=== PATIENT | male | born 1965 | race Two or more races ===

== ENCOUNTER 2016-09-13 19:20 | Emergency (ER) | payer MEDICAID, OTHER ==
[~2016-09-13] VITALS: Ht 162.6 cm; Wt 68.0 kg
[~2016-09-13 19:20] MED LIST: CEPHALEXIN500 MG ORAL; IBUPROFEN600 MG ORAL; INDOCIN25 MG ORAL; INDOMETHACIN50 MG PO; MUCINEX1200 MG PO; NKM; OCUFLOX5 ML OP; PROMETHAZINE-C118 M1 ORAL
--- NOTE | 2016-09-13 20:00 | Emergency Room Report ---
History of Present Illness General Chief Complaint: To Be Triaged Present Illness HPI 51-year-old presents to the emergency department for suture removal. Patient sustained facial laceration approximately one week ago which required suture placement. Patient denies discharge, erythema or increased temperature palpation about the laceration site. Patient states he is up-to-date vaccinations.. Denies CP, Palpitations, LOC, AMS, dizziness, Changes in Vision, Sensation, paresthesias, or a sudden severe headache. Allergies: Coded Allergies: No Known Allergies (Unverified , 09/04/16) Patient History Past Medical History: see triage record Past Surgical History: none Pertinent Family History: none Immunizations: UTD Reviewed Nursing Documentation: PMH: Agreed, PSxH: Agreed Nursing Documentation-PMH Hx Hypertension: Yes Review of Systems All Other Systems: negative except mentioned in HPI Physical Exam Sp02 EP Interpretation: reviewed, normal General Appearance: no apparent distress, alert, GCS 15, non-toxic Head: normocephalic, atraumatic Eyes: bilateral eye PERRL, bilateral eye normal inspection ENT: hearing grossly normal, normal pharynx, no angioedema, normal voice Neck: full range of motion, supple/symm/no masses Respiratory: chest non-tender, lungs clear, normal breath sounds, speaking full sentences Cardiovascular #1: regular rate, rhythm, no edema Cardiovascular #2: 2+ carotid (R), 2+ carotid (L), 2+ radial (R), 2+ radial (L) , 2+ dorsalis pedis (R), 2+ dorsalis pedis (L) Gastrointestinal: normal bowel sounds, non tender, soft, no guarding, no rebound Rectal: deferred Genitourinary: normal inspection, no CVA tenderness Musculoskeletal: back normal, gait/station normal, normal range of motion, non- tender, no calf tenderness Neurologic: alert, oriented x3, responsive, motor strength/tone normal, sensory intact, speech normal Psychiatric: judgement/insight normal, memory normal, mood/affect normal, no suicidal/homicidal ideation Skin: normal color, no rash, warm/dry, well hydrated, wd healing/no infection noted - 4 sutures noted, no evidence of infection Lymphatic: no adenopathy Medical Decision Making PA Attestation Dr. payan is my supervising Physician whom patient management has been discussed with. Diagnostic Impression: Primary Impression: Encounter for removal of sutures ER Course Pt. presents to the ED c/o sutures to facial laceration that need to be removed s/p wound closure 1 week ago. Ddx considered but are not limited to laceration, tendon injury, cellulitis, dehiscence. Vital signs: are WNL, pt. is afebrile H&PE are most consistent with: healed laceration of the left cheek. ORDERS: none required at this time, the diagnosis is clinical ED INTERVENTIONS: - 4 Sutures removed. he tolerated well there were no complications DISCHARGE: At this time pt. is stable for d/c to home. Will provide printed patient care instructions, and any necessary prescriptions. Care plan and follow up instructions have been discussed with the patient prior to discharge. Disposition: HOME, SELF-CARE Condition: Stable Patient Instructions: Suture Removal, Care After Additional Instructions: Take medications as directed. Follow up with PCP in 3-5 days Return sooner to ED if new symptoms occur, or current symptoms become worse. Nikia Hampton Sep 13, 2016 20:00
[2016-09-13 20:20] VITALS: BP 140/88
[2016-09-13 20:25] VITALS: BP 138/62
== END 2016-09-13 20:25 | disposition home or self-care (01) ==
LOC: EMR 20:08
DX: Z48.02 Encounter for removal of sutures (principal)
CPT/HCPCS: 99281

== ENCOUNTER 2016-10-20 20:20 | Emergency (ER) | payer MEDICAID ==
[~2016-10-20] VITALS: Ht 162.6 cm; Wt 71.2 kg
--- NOTE | 2016-10-20 21:13 | Emergency Room Report ---
History of Present Illness General Chief Complaint: Upper Respiratory Illness Present Illness HPI 51-year-old male presents to the emergency department complaining of dry cough, nasal congestion, diarrhea x2 days. Denies blood in his stool denies nausea or vomiting. Denies ill contacts or recent travel. Patient is up-to-date with vaccinations. Patient reports intermittent fevers and chills. Denies CP, Palpitations, LOC, AMS, dizziness, Changes in Vision, Sensation, paresthesias, or a sudden severe headache. Allergies: Coded Allergies: No Known Allergies (Unverified , 09/04/16) Patient History Past Medical History: see triage record Past Surgical History: none Pertinent Family History: none Immunizations: UTD Reviewed Nursing Documentation: PMH: Agreed, PSxH: Agreed Nursing Documentation-PMH Hx Hypertension: Yes Hx Neurological Problems: No - Gout Review of Systems All Other Systems: negative except mentioned in HPI Physical Exam Vital Signs Date Time Temp Pulse Resp B/P Pulse Ox O2 Delivery O2 Flow Rate FiO2 10/20/16 20:25 97.7 71 16 152/88 96 10/20/16 20:33 Room Air Sp02 EP Interpretation: reviewed, normal General Appearance: no apparent distress, alert, GCS 15, non-toxic Head: normocephalic, atraumatic Eyes: bilateral eye PERRL, bilateral eye normal inspection ENT: hearing grossly normal, normal pharynx, no angioedema, normal voice, TMs + canals normal, uvula midline, moist mucus membranes, nasal congestion Neck: full range of motion, supple/symm/no masses Respiratory: chest non-tender, lungs clear, normal breath sounds, speaking full sentences Cardiovascular #1: regular rate, rhythm, no edema Gastrointestinal: normal bowel sounds - hyperactive BS in all 4 quadrants, non tender, soft, no guarding, no rebound, other - Negative [place] signs, Negative MacBurney's sign, Negative Rosvigns Sign, Negative Psoas, No Peritoneal signs. Rectal: deferred Genitourinary: normal inspection, no CVA tenderness Musculoskeletal: back normal, gait/station normal, normal range of motion, non- tender, no calf tenderness Neurologic: alert, oriented x3, responsive, motor strength/tone normal, sensory intact, speech normal Psychiatric: judgement/insight normal, memory normal, mood/affect normal, no suicidal/homicidal ideation Skin: normal color, no rash, warm/dry, well hydrated Lymphatic: no adenopathy Medical Decision Making PA Attestation Dr. Nieves is my supervising Physician whom patient management has been discussed with. Diagnostic Impression: Primary Impression: Upper respiratory infection Qualified Codes: J06.9 - Acute upper respiratory infection, unspecified; B97.89 - Other viral agents as the cause of diseases classified elsewhere Additional Impression: Gastroenteritis ER Course 51-year-old male presents to the emergency department complaining of dry cough, nasal congestion, diarrhea x2 days. Ddx considered but are not limited to URI, pneumonia, PE, strep pharyngitis, GE. Vital signs: Pt. is afebrile, the remaining VS are WNL H&PE are most consistent with URI, and GE most likely viral in etiology, no abdominal TTP, no meningeal signs, oropharynx is not involved, no evidence of bacterial infection at this time, ORDERS: none required at this time, the diagnosis is clinical ED INTERVENTIONS: None required at this time. --PT. EDUCATION: Discussed antibiotic resistance with inappropriate prescribing of antibiotics for viral illnesses. Discussed signs and symptoms to indicate viral illness versus bacterial illness. DISCHARGE: At this time pt. is stable for d/c to home. Will provide printed patient care instructions, and any necessary prescriptions. Care plan and follow up instructions have been discussed with the patient prior to discharge. Last Vital Signs Date Time Temp Pulse Resp B/P Pulse Ox O2 Delivery O2 Flow Rate FiO2 10/20/16 20:33 71 16 Room Air 10/20/16 20:25 97.7 152/88 96 Disposition: HOME, SELF-CARE Condition: Stable Referrals: NOT CHOSEN IPA/MD,REFERRING (PCP) Departure Forms: Return to Work Return to Work Date: Oct 24, 2016 Work Restrictions: None Return to Full Activity: Oct 24, 2016 Patient Instructions: Upper Respiratory Infection, Adult, Viral Gastroenteritis , Adult, [id number] Additional Instructions: Take medications as directed. Follow up with PCP in 3-5 days Return sooner to ED if new symptoms occur, or current symptoms become worse. Do not drink alcohol, drive, or operate heavy machinery while taking Cough Syrup as this may cause drowsiness. - Please note that this Emergency Department Report was dictated using [employer] mill technology software, occasionally this can lead to erroneous entry secondary to interpretation by the dictation equipment. Nikia Hampton Oct 20, 2016 21:13
[2016-10-20] MEDS ORDERED: NASONEX17 GM NASAL (21:15)
[2016-10-20] MEDS ORDERED: BENTYL10 MG ORAL (21:15)
[2016-10-20] MEDS ORDERED: PROMETHAZINE-C118 M1 ORAL (21:15)
[2016-10-20 21:25] VITALS: BP 130/76
== END 2016-10-20 21:26 | disposition home or self-care (01) ==
LOC: EMR 20:35
DX: J06.9 Acute upper respiratory infection, unspecified (principal); K52.9 Noninfective gastroenteritis and colitis, unspecified; I10 Essential (primary) hypertension
CPT/HCPCS: 99282

== ENCOUNTER 2017-07-21 11:45 | Emergency (ER) | payer MEDICAID, OTHER ==
[~2017-07-21] VITALS: Ht 162.6 cm; Wt 70.3 kg
[~2017-07-21 11:45] MED LIST changes: +BENTYL10 MG ORAL; +NASONEX17 GM NASAL
[2017-07-21 12:02] VITALS: BP 139/92
[2017-07-21] MEDS ORDERED: [UNRECOGNIZED DRUG - OTHER] (12:06)
[2017-07-21] MEDS ORDERED: Tetanus/Diptheria/Pertussis Vaccine 0.5ml Syr IM ONE (13:30)
[2017-07-21 13:52] VITALS: BP 126/75
[2017-07-21 13:57] LABS: BASOPHILS % (AUTO) 1.2 % (0.0-2.0); EOSINOPHILS % (AUTO) 2.9 % (0.0-3.0); LYMPHOCYTES % (AUTO) 24.3 % (20.0-45.0); MEAN CORPUSCULAR HEMOGLOBIN 30.1 PG (27.0-31.0); MEAN CORPUSCULAR HGB CONC 32.7 G/DL (32.0-36.0); MEAN CORPUSCULAR VOLUME 92 FL (80-99); MEAN PLATELET VOLUME 9.1 FL (6.5-10.1); NEUTROPHILS % (AUTO) 62.5 % (45.0-75.0); PLATELET COUNT 239 K/UL (150-450)
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
[2017-07-21 14:21] LABS: ANION GAP 9 mmol/L (5-15); CALCIUM 9.2 MG/DL (8.5-10.1); CARBON DIOXIDE 26 MMOL/L (21-32); CHLORIDE 107 MMOL/L (98-107); CREATININE 1.3 MG/DL (0.55-1.30); GLOMERULAR FILTRATION RATE 57.7 mL/min (>60); POTASSIUM 4.4 MMOL/L (3.5-5.1); SODIUM 142 MMOL/L (136-145)
[2017-07-21 14:32] LABS: ALANINE AMINOTRANSFERASE 26 U/L (12-78); ALBUMIN/GLOBULIN RATIO 1.2 (1.0-2.7); ASPARTATE AMINO TRANSFERASE 14 U/L (15-37); TOTAL PROTEIN 7.1 G/DL (6.4-8.2)
[2017-07-21 14:55] LABS: APPEARANCE,URINE CLEAR; KETONES,URINE NEGATIVE (NEGATIVE); LEUKOCYTE ESTERASE ,URINE NEGATIVE (NEGATIVE); NITRITE,URINE NEGATIVE (NEGATIVE); PH,URINE 5 (4.5-8.0); PROTEIN,URINE NEGATIVE (NEGATIVE); UROBILINOGEN,URINE NORMAL MG/DL (0.0-1.0)
[2017-07-21 16:00] VITALS: BP 130/91
[2017-07-21 16:09] VITALS: BP 130/91
--- NOTE | 2017-07-22 10:01 | Diagnostic Imaging Report ---
Indication: PAIN Technique: One view of the chest Comparison: none Findings: There is atelectasis at the left lung base. The lungs and pleural spaces otherwise clear. Heart size is normal Impression: Left basilar atelectasis. No acute process otherwise
--- NOTE | 2017-07-22 10:01 | Diagnostic Imaging Report ---
Indication: PAIN, possible syncope, laceration to the face Technique: Continuous helical CT scanning of the head was performed without intravenous contrast material. Axial and coronal 5 mm sections were generated. Radiation dose was minimized using automated exposure control Dose: Total Dose Length Product - DLP [address] Dose Index - CTDIvol(s) 70.38 mGy. Comparison: None Findings: The ventricular system is normal in size and configuration. There is no shift of midline structures. No abnormal extra-axial fluid collections are noted. There is no evidence of intracerebral bleeding. No other abnormal high or low density areas are noted within the brain. Impression: Normal CT scan of the head without contrast material. This agrees with the preliminary interpretation provided overnight by [facility]erad[facility] service. The CT scanner at [facility] is accredited by the [employer] and the scans are performed using protocols designed to limit radiation exposure to as low as reasonably achievable to attain images of sufficient resolution adequate for diagnostic evaluation.
--- NOTE | 2017-07-24 08:41 | Cardiology Report ---
APPROVED REPORT EKG Measurement Heart [id number] Sinus bradycardia Possible Left atrial enlargement Borderline ECG
== END 2017-07-21 16:09 | disposition home or self-care (01) ==
LOC: EMR 13:00 → CANBEDREQ 14:23 → EMR 16:09
DX: S09.8XXA Other specified injuries of head, initial encounter (principal); S00.81XA Abrasion of other part of head, initial encounter; S40.812A Abrasion of left upper arm, initial encounter; W01.0XXA Fall on same level from slipping, tripping and stumbling without subsequent striking against object, initial encounter; Y93.02 Activity, running; Y92.89 Other specified places as the place of occurrence of the external cause; I10 Essential (primary) hypertension
CPT/HCPCS: 36415; 70450; 71010; 80053; 81003; 83880; 84484; 85025; 90471; 90715; 93005; 99284

== ENCOUNTER 2017-07-24 16:05 | Emergency (ER) | payer MEDICAID, OTHER ==
[~2017-07-24] VITALS: Ht 170.2 cm; Wt 68.0 kg
[~2017-07-24 16:05] MED LIST changes: +[UNRECOGNIZED DRUG - OTHER]
[2017-07-24 16:07] VITALS: BP 161/95
[2017-07-24 16:26] VITALS: BP 157/96
--- NOTE | 2017-07-24 17:23 | Emergency Room Report ---
History of Present Illness General Chief Complaint: General Complaint Source: Patient, Family Member Present Illness HPI 52-year-old male presents ED for evaluation. Patient states that he has cough and congestive symptoms for the last 2 days. Does runny nose and cough. Cough is dry. Denies earache or sore throat. Denies fevers or chills. Denies sick contacts or recent travel. Patient also here for followup. States that he was seen here 3 days ago secondary to fall. Did not receive a work done at that time. Would like a work note excusing his absence until today. Denies any headaches blurry vision. Denies any pain. No other aggravating relieving factors. Denies any other associated symptoms Allergies: Coded Allergies: No Known Allergies (Unverified , 09/04/16) Patient History Past Medical History: HTN Past Surgical History: none Pertinent Family History: none Social History: Denies: smoking, alcohol use, drug use Immunizations: UTD Reviewed Nursing Documentation: PMH: Agreed, PSxH: Agreed Nursing Documentation-PMH Hx Hypertension: Yes Hx Neurological Problems: No - Gout Review of Systems All Other Systems: negative except mentioned in HPI Physical Exam Vital Signs Date Time Temp Pulse Resp B/P (MAP) Pulse Ox O2 Delivery O2 Flow Rate FiO2 07/24/17 16:07 98.1 69 16 161/95 99 Room Air Sp02 EP Interpretation: reviewed, normal General Appearance: no apparent distress, alert, GCS 15, non-toxic Head: normocephalic, atraumatic Eyes: bilateral eye normal inspection, bilateral eye PERRL ENT: hearing grossly normal, normal pharynx, no angioedema, normal voice Neck: full range of motion, supple/symm/no masses Respiratory: chest non-tender, lungs clear, normal breath sounds, speaking full sentences Cardiovascular #1: regular rate, rhythm, no edema Cardiovascular #2: 2+ carotid (R), 2+ carotid (L), 2+ radial (R), 2+ radial (L) , 2+ dorsalis pedis (R), 2+ dorsalis pedis (L) Gastrointestinal: normal bowel sounds, non tender, soft, non-distended, no guarding, no rebound Rectal: deferred Genitourinary: normal inspection, no CVA tenderness Musculoskeletal: back normal, gait/station normal, normal range of motion, non- tender Neurologic: alert, oriented x3, responsive, motor strength/tone normal, sensory intact, speech normal Psychiatric: judgement/insight normal, memory normal, mood/affect normal, no suicidal/homicidal ideation Reflexes: 3+ bicep (R), 3+ bicep (L), 3+ tricep (R), 3+ tricep (L), 3+ knee (R) , 3+ knee (L) Skin: normal color, warm/dry, well hydrated, abrasions - abrasion to L cheek, multiple abrasions to bilateral hands Lymphatic: no adenopathy Medical Decision Making Diagnostic Impression: Primary Impression: Facial contusion Qualified Codes: S00.83XD - Contusion of other part of head, subsequent encounter Additional Impression: URI (upper respiratory infection) Qualified Codes: J06.9 - Acute upper respiratory infection, unspecified ER Course Hospital Course 52-year-old male presents to ED complaining of runny nose and cough and congestion x2 days Differential diagnoses include: URI, pharyngitis, otitis media, asthma Clinical course Patient placed on stretcher. After initial history, physical exam reveals a male in no acute distress. Bilateral TM unremarkable. No pharyngeal erythema. No tonsillar exudates. No lymphadenopathy. lungs clear. abdomen soft. Clinical findings consistent with URI. Reassurance given. treatment is supportive therapy I reviewed EMR; patient was seen here on 07/21 for injuries related to fall. Patient had CT which was negative. Patient was subsequently discharged. I agreed to provide him with a note retroactively excusing him for the days of through today. I explained to patient that any additional days of would require documentation from PMD Diagnosis - URI, facial contusion Stable and discharged home. Instructed to followup with PMD. Return to ED if symptoms recur or worsen Last Vital Signs Date Time Temp Pulse Resp B/P (MAP) Pulse Ox O2 Delivery O2 Flow Rate FiO2 07/24/17 16:26 98.1 69 16 157/96 99 Room Air Status: improved Disposition: HOME, SELF-CARE Condition: Stable Referrals: NOT CHOSEN IPA/,REFERRING (PCP) Departure Forms: Return to Work Return to Work Date: Jul 24, 2017 Work Restrictions: None Other Restrictions: patient excused 07/21 to 07/24 Patient Instructions: Upper Respiratory Infection, Adult, [id number] SULEMAN WRAY M.D. Jul 24, 2017 17:23
== END 2017-07-24 16:26 | disposition home or self-care (01) ==
LOC: EMR 16:19
DX: J06.9 Acute upper respiratory infection, unspecified (principal); S00.83XD Contusion of other part of head, subsequent encounter; W19.XXXD Unspecified fall, subsequent encounter; S00.81XD Abrasion of other part of head, subsequent encounter; S60.512D Abrasion of left hand, subsequent encounter; S60.511D Abrasion of right hand, subsequent encounter; X58.XXXD Exposure to other specified factors, subsequent encounter; I10 Essential (primary) hypertension
CPT/HCPCS: 99282

== ENCOUNTER 2017-11-24 02:54 | Emergency (ER) | payer OTHER ==
[~2017-11-24] VITALS: Ht 154.9 cm; Wt 68.0 kg
[2017-11-24 03:10] VITALS: BP 127/84
[2017-11-24 03:19] LABS: APPEARANCE,URINE CLOUDY; BILIRUBIN, URINE NEGATIVE (NEGATIVE); GLUCOSE, URINE (UA) NEGATIVE (NEGATIVE); KETONES,URINE NEGATIVE (NEGATIVE); LEUKOCYTE ESTERASE ,URINE 1+ (NEGATIVE); NITRITE,URINE NEGATIVE (NEGATIVE); PH,URINE 5 (4.5-8.0); PROTEIN,URINE 2+ (NEGATIVE); UROBILINOGEN,URINE NORMAL MG/DL (0.0-1.0)
[2017-11-24 03:31] LABS: COLOR,URINE PALE YELLOW
--- NOTE | 2017-11-24 03:36 | Emergency Room Report ---
History of Present Illness General Chief Complaint: Male Urogenital Problems Source: Patient Present Illness [facility] This a 52-year-old male with a history of high blood pressure. He presents with chief complaint of hematuria. Onset was yesterday afternoon. Also some slight hesitancy and urgency. No back pain. No nausea no vomiting. No fever. Never had this problem before. Allergies: Coded Allergies: No Known Allergies (Unverified , 09/04/16) Patient History Past Medical History: see triage record, old chart reviewed, HTN Past Surgical History: none Pertinent Family History: none Social History: Denies: smoking Immunizations: other Reviewed Nursing Documentation: PMH: Agreed, PSxH: Agreed Nursing Documentation-PMH Hx Hypertension: Yes Hx Neurological Problems: No - Gout Review of Systems Eye: Denies: eye pain, blurred vision ENT: Denies: ear pain, nose congestion, throat swelling Respiratory: Denies: cough, shortness of breath Cardiovascular: Denies: chest pain, palpitations Gastrointestinal: Denies: abdominal pain, diarrhea, nausea, vomiting Genitourinary: Reports: hematuria Musculoskeletal: Denies: back pain, joint pain Skin: Denies: rash Neurological: Denies: headache, numbness Endocrine: Denies: increased thirst, increased urine Hematologic/Lymphatic: Denies: easy bruising All Other Systems: negative except mentioned in HPI Physical Exam Vital Signs Date Time Temp Pulse Resp B/P (MAP) Pulse Ox O2 Delivery O2 Flow Rate FiO2 11/24/17 02:58 98.1 77 18 127/84 98 Room Air 98.1 vitals normal Sp02 EP Interpretation: reviewed, normal General Appearance: well appearing, no apparent distress, alert Head: normocephalic, atraumatic Eyes: bilateral eye PERRL, bilateral eye EOMI ENT: hearing grossly normal, normal pharynx Neck: full range of motion, supple, no meningismus Respiratory: chest non-tender, lungs clear, normal breath sounds Cardiovascular #1: regular rate, rhythm, no murmur Gastrointestinal: normal bowel sounds, non tender, no mass, no organomegaly, no bruit, non-distended Musculoskeletal: back normal, gait/station normal, normal range of motion Psychiatric: mood/affect normal Skin: warm/dry Medical Decision Making Diagnostic Impression: Primary Impression: Right ureteral stone ER Course Patient presents with hematuria. He has a 3 mm stone in the distal right ureter without hydronephrosis. Patient pain is well-controlled. We'll discharge home. No evidence of infection. CT/MRI/US Diagnostic Results CT/MRI/US Diagnostic Results : Imaging Test Ordered: CT abd/pelvis Impression Read by radiologist. 3 mm stone in the distal right ureter, no hydronephrosis. Last Vital Signs Date Time Temp Pulse Resp B/P (MAP) Pulse Ox O2 Delivery O2 Flow Rate FiO2 11/24/17 02:58 98.1 77 18 127/84 98 Room Air 98.1 Status: improved Disposition: HOME, SELF-CARE Condition: Stable Scripts Tamsulosin Hcl (TAMSULOSIN HCL*) 0.4 Mg Cap.er.24h 0.4 MG ORAL BEDTIME, #14 CAP Prov: SHANIA LAUREANO M.D. 11/24/17 Hydrocodone/Acetaminophen 5-325* (HYDROCODONE/ACETAMINOPHEN 5-325*) 1 Each Tablet 1 TAB ORAL Q6H Y for For Pain, #15 TAB 0 Refills Prov: SHANIA LAUREANO M.D. 11/24/17 Additional Instructions: Follow-up with your in 7 days. If not better you will need a referral to see a urologist. Return for fever or any concern. SHANIA LAUREANO M.D. Nov 24, 2017 03:36
[2017-11-24] MEDS ORDERED: HYDROCODON-ACE1 EA15 ORAL (04:56)
[2017-11-24] MEDS ORDERED: TAMSULOSIN HCL0.4 MG ORAL (04:56)
[2017-11-24 05:05] VITALS: BP 127/84
--- NOTE | 2017-11-24 14:35 | Diagnostic Imaging Report ---
Indication: Abdominal pain Technique: CT of the abdomen and pelvis utilizing automated exposure control without intravenous or oral contrast. CT dose: Total DLP 685.8 mGycm; CTDI vol 12.74 mGy Comparison: None Findings: Please note that evaluation of the abdominal and pelvic viscera is limited without the use of intravenous and oral contrast. Within these limitations, the following observations are made: Dependent atelectasis noted in the lung bases. Heart appears within the upper limits for normal size. No pericardial effusion is appreciated. Noncontrast evaluation of the liver, gallbladder, spleen, adrenal glands and pancreas is grossly unremarkable. There is a 3 mm stone in the distal right ureter (series 3 image #127). There is mild relative prominence of the right renal collecting system without иван hydronephrosis. A 2 mm nonobstructing stone is noted in the lower pole of the left kidney (series 3 image #66). Bladder apparent mild bladder wall thickening likely related to underdistention. Prostate appears mildly enlarged. There is no free intraperitoneal air or fluid. Appendix is normal. No evidence of bowel obstruction. There few scattered colonic diverticula. No evidence to suggest acute diverticulitis. Abdominal aorta is normal in caliber. No pathologically enlarged lymphadenopathy is appreciated. There mild degenerative changes of the spine, most pronounced at L4-L5. No acute osseous abnormality is seen. IMPRESSION: 2 mm stone in the distal right ureter. Mild relative prominence of the right renal collecting system without иван hydronephrosis. 2 mm nonobstructing stone in the lower pole of the left kidney. Correlation with urinalysis recommended. Mild colonic diverticulosis without evidence of acute diverticulitis. Mild prostatomegaly. Additional findings as above. This corresponds with the statrad preliminary report. The CT scanner at [facility] is accredited by the [employer] and the scans are performed using protocols designed to limit radiation exposure to as low as reasonably achievable to attain images of sufficient resolution adequate for diagnostic evaluation.
== END 2017-11-24 05:05 | disposition home or self-care (01) ==
LOC: EMR 04:00
DX: N20.1 Calculus of ureter (principal); I10 Essential (primary) hypertension
CPT/HCPCS: 74176; 81003; 99284

== ENCOUNTER 2017-11-26 00:23 | Emergency (ER) | payer OTHER ==
[~2017-11-26] VITALS: Ht 154.9 cm; Wt 70.3 kg
[~2017-11-26 00:23] MED LIST changes: +HYDROCODON-ACE1 EA15 ORAL; +TAMSULOSIN HCL0.4 MG ORAL
[2017-11-26] MEDS ORDERED: INDOMETHACIN50 MG PO (01:56)
[2017-11-26 02:09] VITALS: BP 146/91
[2017-11-26 02:10] VITALS: BP 146/91
--- NOTE | 2017-11-26 21:49 | Emergency Room Report ---
History of Present Illness General Chief Complaint: Lower Extremity Injury Source: Patient Present Illness HPI 52-year-old male presents ED for evaluation. Patient notes history of gout to his right foot. States that he's been having a gout flareup 1 day. Dull, 8 out of 10, nonradiating. Denies fevers or chills. Denies recent injury. States that he was prescribed a medication here in the past that helped him. No other aggravating relieving factors. Denies any other associated symptoms Allergies: Coded Allergies: No Known Allergies (Unverified , 09/04/16) Patient History Past Medical History: HTN Past Surgical History: none Pertinent Family History: none Social History: Denies: smoking, alcohol use, drug use Immunizations: UTD Reviewed Nursing Documentation: PMH: Agreed, PSxH: Agreed Nursing Documentation-PMH Hx Hypertension: Yes Hx Neurological Problems: No - Gout Review of Systems All Other Systems: negative except mentioned in HPI Physical Exam Vital Signs Date Time Temp Pulse Resp B/P (MAP) Pulse Ox O2 Delivery O2 Flow Rate FiO2 11/26/17 00:33 98.8 73 18 146/91 98 Room Air 98.8 Sp02 EP Interpretation: reviewed, normal General Appearance: no apparent distress, alert, GCS 15, non-toxic Head: normocephalic Eyes: bilateral eye normal inspection, bilateral eye PERRL ENT: normal ENT inspection Neck: normal inspection Respiratory: normal inspection Cardiovascular #1: normal inspection Gastrointestinal: normal inspection Rectal: deferred Genitourinary: no CVA tenderness Musculoskeletal: tender - R foot. no erythema/induration Neurologic: alert, oriented x3, responsive, motor strength/tone normal, sensory intact, speech normal Psychiatric: judgement/insight normal, memory normal, mood/affect normal, no suicidal/homicidal ideation Skin: normal inspection Lymphatic: normal inspection Medical Decision Making Diagnostic Impression: Primary Impression: Gout attack Qualified Codes: M10.9 - Gout, unspecified ER Course Hospital Course 52-year-old M presents ED with R foot pain and swelling. History of gout Differential diagnoses include: Fracture, dislocation, sprain, contusion, bursitis, septic joint Clinical course Patient placed on stretcher. After initial history, physical exam reveals middle aged male in no acute distress. There is TTP to R foot. No fluctuance. Patient appears well and nontoxic. Given history of gout my suspicion for septic arthritis is low. Diagnosis - gout Stable and discharged to home with prescription for indomethacin. Followup with PMD. Return to ED if symptoms recur or worsen Last Vital Signs Date Time Temp Pulse Resp B/P (MAP) Pulse Ox O2 Delivery O2 Flow Rate FiO2 11/26/17 02:10 98.8 80 18 146/91 98 Room Air 98.8 Status: improved Disposition: HOME, SELF-CARE Condition: Stable Scripts Indomethacin (INDOMETHACIN) 50 Mg Capsule 50 MG PO TID, #30 CAP Prov: SULEMAN WRAY M.D. 11/26/17 Referrals: NOT CHOSEN MEL/,REFERRING (PCP) Patient Instructions: Gout, [id number] SULEMAN WRAY M.D. Nov 26, 2017 21:49
== END 2017-11-26 02:10 | disposition home or self-care (01) ==
LOC: EMR 00:50
DX: M10.9 Gout, unspecified (principal); I10 Essential (primary) hypertension
CPT/HCPCS: 99283